=== PATIENT | male | born 2005 | race Caucasian/White ===

== ENCOUNTER → 2024-06-23 07:10 | Outpatient (CLI) | payer OTHER, SELFPAY ==
--- NOTE | 2024-06-23 07:13 | DI.ECHO.S_ITS ---
[facility] : : [id number] : : [place] : : [id number] : : Phone: [phone] Echocardiogram Report + + :Name: AZALIA DARLING Study Date: 06/23/2024 Height: 71 in : :Hospital ReadingLocation: Weight: 280 lb : : Gender: Male BSA: 2.4 m2 : :: 2005 Age: 18 yrs BP: 137/84 mmHg: :Reason For Study: SYNCOPE AND COLLAPSE : :Ordering Physician: HAO, : :MICHAEL Performed By: Yessy Kidd : :Referring: MICHAEL BUI : + + Interpretation Summary The ejection fraction is estimated to be 50-55%. Diastolic parameters suggest probable normal left ventricular diastolic function and normal filling pressures. The right ventricle is normal in size and function. No valvular abnormalities. Pulmonary artery pressures cannot be estimated because of the lack of a measurable TR jet velocity but the IVC suggests a CVP of around 3 mmHg. Procedure: A two-dimensional transthoracic echocardiogram with color flow and Doppler was performed. The study quality was technically adequate. There is no prior echocardiogram noted for this patient. The patient was in sinus rhythm with heart rates between 59-68 bpm during the exam. Left Ventricle: The left ventricle is normal in size and wall thickness. The ejection fraction is estimated to be 50-55%. Diastolic parameters suggest probable normal left ventricular diastolic function and normal filling pressures. Right Ventricle: The right ventricle is normal in size and function. Atria: The left atrial size is normal. Right atrial size is normal. There is no Doppler evidence for an interatrial shunt. Mitral Valve: The mitral valve is normal. There is no mitral regurgitation noted. Aortic Valve: The aortic valve is trileaflet. The aortic valve opens well. There is no aortic valve stenosis. No aortic regurgitation is present. Tricuspid Valve: The tricuspid valve leaflets are thin and pliable. There is a trace or physiologic amount of tricuspid regurgitation. Pulmonary artery pressures cannot be estimated because of the lack of a measurable TR jet velocity but the IVC suggests a CVP of around 3 mmHg. Pulmonic Valve: The pulmonic valve leaflets are thin and pliable; valve motion is normal. There is mild pulmonic regurgitation. Great Vessels: The aortic root is normal size. The dimensions of the ascending aorta are normal. The IVC is of normal diameter and collapses greater than 50% with a sniff. This suggests a low right atrial pressure of 3 mm Hg. Pericardium/ Pleura There is no pericardial effusion. There is no pleural effusion. MMode/2D Measurements & Calculations LVIDd: 5.3 cm LVOT diam: 2.3 cm LVIDs: 3.8 cm Ao root diam: 3.0 cm FS: 29.5 % asc Aorta Diam: 2.5 cm EPSS: 0.35 cm Ao Arch Diam (Prox Trans): 2.5 cm IVSd: 0.73 cm LVPWd: 0.97 cm LV kapoor. diameter/BSA (cm/m^2): 2.2 LV sys. diameter/BSA (cm/m^2): 1.5 LA A2 area: 19.1 cm2 RA long axis: 5.6 cm LA A4 area: 18.4 cm2 RA area: 16.4 cm2 LA length (vol): 5.5 cm RA vol: 41.0 ml LA vol: 54.5 ml RA : 16.8 ml/m2 LA vol index: 22.4 ml/m2 IVC diam: 1.3 cm RVD1 (basal): 4.1 cm RVD2 (mid): 4.0 cm TAPSE: 1.8 cm Doppler Measurements & Calculations Ao V2 max: 125.5 cm/sec LVOT Max Rasta: 91.4 cm/sec Ao V2 mean: 83.0 cm/sec LV V1 max P.3 mmHg Ao max P.3 mmHg LV V1 VTI: 16.3 cm Ao mean P.3 mmHg YOLI(I,D): 3.0 cm2 Ao V2 VTI: 23.1 cm YOLI(V,D): 3.1 cm2 sev ratio: 0.70 YOLI indexed to BSA (cm^2/m^2): 1.2 MV E max rasta: 90.3 cm/sec TR max rasta: 179.6 cm/sec MV A max rasta: 46.9 cm/sec TR max P.9 mmHg MV E/A: 1.9 PA V2 max: 114.8 cm/sec Med Peak E' Rasta: 12.2 cm/sec PA V2 mean: 75.4 cm/sec E/E' med: 7.4 PA mean P.6 mmHg Lat Peak E' Rasta: 18.3 cm/sec PA pr(Accel): 19.1 mmHg E/E' lat: 4.9 E/e' average: 6.2 MV dec time: 0.22 sec [facility] 68.2 ml Reading Physician:09:25 PM
== END ==
LOC: ECHO 07:13
PROVIDERS: Referring Provider Physician Assistant; Visit Provider Orthopaedic Surgery
DX: R55 Syncope and collapse (principal)
CPT/HCPCS: 93306